=== PATIENT | female | born 1990 | race Hispanic/Latino ===

== ENCOUNTER 2018-01-28 20:31 | Emergency (ER) | payer OTHER ==
[~2018-01-28] VITALS: Ht 152.4 cm; Wt 57.2 kg
--- OUTSIDE RECORDS SUMMARY | 2018-01-28 20:33 | XMS REPORT | Clinical Summary ---
Author Author [facility] Organization [facility] Address Unknown Phone Unavailable Care Team Providers Care Chemistry Tutor Name Role Phone Pcp, No PCP Unavailable Allergies No Known Allergies Medications End Date Status Medication Sig Dispensed Refills Start Date Active VIT#96/FERROUS Take 1 tablet 0 FUM/FA ( VITAMIN by mouth W/IRON-FOLATE) 27 mg daily. iron- 800 mcg Tab Active Problems Problem Noted Date 05/17/2016 05/17/2016 Family History Medical History Relation Name Comments Hypertension Maternal Aunt Relation Name Status Comments Maternal Aunt Social History Date Tobacco Use Types Packs/Day Years Used Never Smoker Smokeless Tobacco: Never Used Alcohol Use Drinks/Week oz/Week Comments No Sex Assigned at Date Recorded Not on file Industry Job Start Date Occupation Not on file Not on file Not on file Travel End Travel History Travel Start No recent travel history available. Last Filed Vital Signs Not on file Plan of Treatment Not on file Results Not on fileafter 01/27/2017 Insurance Payer Benefit Subscriber ID Type Phone Address Plan / Group MEDICAID - MEDICAID MGD MEDICAID xxxxxxxxx Medicaid [facility] Contracted Advance Directives For more information, please contact: [facility] [address] [place] [address] Date Inactivated Comments Code Status Date Activated 05/19/2016 4:09 PM Full Code 05/17/2016 6:46 PM This code status was determined by: Patient 05/17/2016 6:46 PM Full Code 05/17/2016 3:54 PM This code status was determined by: Patient
--- OUTSIDE RECORDS SUMMARY | 2018-01-28 20:33 | XMS REPORT ---
Author Author [facility] Address Unknown Phone Unavailable Care Team Providers Care Director Of Teacher Education Name Role Phone ALEK FLORES Unavailable Unavailable Problems This patient has no known problems. Allergies, Adverse Reactions, Alerts This patient has no known allergies or adverse reactions. Medications This patient has no known medications. Results Test Description Test Time Test Comments Text Results Atomic Results Result Comments RPR 2016-05-18 14:40:00 RPR SCREEN (BEAKER) (test cwhl=559) Nonreactive Nonreactive CBC W/PLT COUNT & AUTO [id number] 07:04:00* Test Item Value Reference Range Comments WHITE BLOOD CELL COUNT (BEAKER) (test bgqe=347) 8.0 K/ L 4.0-10.0 RED BLOOD CELL COUNT (BEAKER) (test gtnf=642) 4.16 M/ L 4.00-5.00 HEMOGLOBIN (BEAKER) (test pwkn=213) 9.9 GM/DL 12.0-15.0 HEMATOCRIT (BEAKER) (test kdcf=280) 29.6 % 36.0-45.0 MEAN CORPUSCULAR VOLUME (BEAKER) (test zmkx=846) 71.2 fL 82.0-99.0 MEAN CORPUSCULAR HEMOGLOBIN (BEAKER) (test apad=255) 23.8 pg 27.0-33.0 MEAN CORPUSCULAR HEMOGLOBIN CONC (BEAKER) (test socs=395) 33.4 GM/DL 32.0-36.0 RED CELL DISTRIBUTION WIDTH (BEAKER) (test dwtz=918) 14.6 % 10.3-14.2 PLATELET COUNT (BEAKER) (test jeuz=778) 176 K/CU MM 150-430 MEAN PLATELET VOLUME (BEAKER) (test qfox=222) 9.9 fL 6.5-10.5 NUCLEATED RED BLOOD CELLS (BEAKER) (test cnwd=139) 0 /100 WBC 0-0 NEUTROPHILS RELATIVE PERCENT (BEAKER) (test simh=314) 75 % LYMPHOCYTES RELATIVE PERCENT (BEAKER) (test otux=355) 18 % MONOCYTES RELATIVE PERCENT (BEAKER) (test gnez=827) 6 % EOSINOPHILS RELATIVE PERCENT (BEAKER) (test lyld=637) 0 % BASOPHILS RELATIVE PERCENT (BEAKER) (test mret=713) 0 % NEUTROPHILS ABSOLUTE COUNT (BEAKER) (test lxii=937) 6.01 K/ L 1.80-8.00 LYMPHOCYTES ABSOLUTE COUNT (BEAKER) (test ftua=129) 1.47 K/ L 1.48-4.50 MONOCYTES ABSOLUTE COUNT (BEAKER) (test ewlj=938) 0.50 K/ L 0.00-1.30 EOSINOPHILS ABSOLUTE COUNT (BEAKER) (test vxcv=265) 0.02 K/ L 0.00-0.50 BASOPHILS ABSOLUTE COUNT (BEAKER) (test vahp=375) 0.01 K/ L 0.00-0.20 (MANUAL DIFFERENTIAL)2016-05-18 07:04:00* Test Item Value Reference Range Comments TOTAL COUNTED (BEAKER) (test zvpy=3243) WBC MORPHOLOGY (BEAKER) (test qoth=522) Normal LARGE PLT(BEAKER) (test udqo=3370) Present MICROCYTES (BEAKER) (test veqt=859) 1+ few URINALYSIS W/ [id number] 18:18:00* Test Item Value Reference Range Comments COLOR (BEAKER) (test iycp=134) Yellow CLARITY (BEAKER) (test zinl=831) Clear SPECIFIC GRAVITY UA (BEAKER) (test qbzg=743) 1.015 1.001-1.035 PH UA (BEAKER) (test efdb=868) 6.5 5.0-8.0 PROTEIN UA (BEAKER) (test dccn=908) 30 mg/dL Negative GLUCOSE UA (BEAKER) (test zjap=701) Negative Negative KETONES UA (BEAKER) (test moaw=181) 40 mg/dL Negative BILIRUBIN UA (BEAKER) (test byag=454) Negative Negative BLOOD UA (BEAKER) (test lnjq=563) Trace Negative NITRITE UA (BEAKER) (test kdve=719) Negative Negative LEUKOCYTE ESTERASE UA (BEAKER) (test ykzx=386) Negative Negative UROBILINOGEN UA (BEAKER) (test zxus=207) 4.0 mg/dL 0.2-1.0 BACTERIA (BEAKER) (test vvvz=204) Few RBC UA-MANUAL (BEAKER) (test ecml=8406) <5 /HPF WBC UA-MANUAL (BEAKER) (test pnap=5874) <5 /HPF SQUAMOUS EPITHELIAL MANUAL (BEAKER) (test vusg=0432) 5-10 /HPF SOURCE(BEAKER) (test dpcn=1412) HEPATITIS B SURFACE [id number] 18:14:00* Test Item Value Reference Range Comments HEPATITIS B SURFACE ANTIGEN (2) (BEAKER) (test gidf=2776) Nonreactive Nonreactive CBC W/PLT COUNT & AUTO [id number] 17:31:00* Test Item Value Reference Range Comments WHITE BLOOD CELL COUNT (BEAKER) (test rvhq=712) 7.3 K/ L 4.0-10.0 RED BLOOD CELL COUNT (BEAKER) (test eizp=284) 4.26 M/ L 4.00-5.00 HEMOGLOBIN (BEAKER) (test sxrk=381) 10.0 GM/DL 12.0-15.0 HEMATOCRIT (BEAKER) (test hvkf=096) 30.8 % 36.0-45.0 MEAN CORPUSCULAR VOLUME (BEAKER) (test gwrg=003) 72.3 fL 82.0-99.0 MEAN CORPUSCULAR HEMOGLOBIN (BEAKER) (test tmpx=256) 23.5 pg 27.0-33.0 MEAN CORPUSCULAR HEMOGLOBIN CONC (BEAKER) (test kfhv=448) 32.5 GM/DL 32.0-36.0 RED CELL DISTRIBUTION WIDTH (BEAKER) (test uidu=418) 15.0 % 10.3-14.2 PLATELET COUNT (BEAKER) (test pkqp=524) 222 K/CU MM 150-430 MEAN PLATELET VOLUME (BEAKER) (test gmyt=772) 10.7 fL 6.5-10.5 NEUTROPHILS RELATIVE PERCENT (BEAKER) (test cfkh=302) 68 % LYMPHOCYTES RELATIVE PERCENT (BEAKER) (test vqsx=518) 25 % MONOCYTES RELATIVE PERCENT (BEAKER) (test qplv=320) 7 % EOSINOPHILS RELATIVE PERCENT (BEAKER) (test pyab=635) 1 % BASOPHILS RELATIVE PERCENT (BEAKER) (test xlkq=519) 0 % NEUTROPHILS ABSOLUTE COUNT (BEAKER) (test lkhz=367) 4.97 K/ L 1.50-10.30 LYMPHOCYTES ABSOLUTE COUNT (BEAKER) (test blju=211) 1.82 K/ L 1.48-4.50 MONOCYTES ABSOLUTE COUNT (BEAKER) (test nuwt=279) 0.48 K/ L 0.00-1.30 EOSINOPHILS ABSOLUTE COUNT (BEAKER) (test pwwx=013) 0.04 K/ L 0.00-0.50 BASOPHILS ABSOLUTE COUNT (BEAKER) (test cxjw=510) 0.01 K/ L 0.00-0.20 (MANUAL DIFFERENTIAL)2016-05-17 17:31:00* Test Item Value Reference Range Comments TOTAL COUNTED (BEAKER) (test ztih=1696) WBC MORPHOLOGY (BEAKER) (test shjh=517) Normal PLT MORPHOLOGY (BEAKER) (test xshw=634) Normal ANISOCYTOSIS (BEAKER) (test docg=761) 1+ few MICROCYTES (BEAKER) (test ynwa=169) 1+ few COMPREHENSIVE METABOLIC [id number] 17:00:00* Test Item Value Reference Range Comments TOTAL PROTEIN (BEAKER) (test ouje=710) 5.8 gm/dL 6.0-8.5 ALBUMIN (BEAKER) (test tjkc=5804) 2.8 g/dL 3.5-5.0 ALKALINE PHOSPHATASE (BEAKER) (test ytai=154) 206 U/L 30-115 BILIRUBIN TOTAL (BEAKER) (test zatv=602) 0.4 mg/dL 0.1-1.2 SODIUM (BEAKER) (test hlab=107) 136 meq/L 135-148 POTASSIUM (BEAKER) (test deye=710) 3.4 meq/L 3.6-5.5 CHLORIDE (BEAKER) (test rurn=044) 108 meq/L 98-106 CO2 (BEAKER) (test bbya=846) 19 meq/L 20-29 BLOOD UREA NITROGEN (BEAKER) (test socw=136) 6 mg/dL 10-26 CREATININE (BEAKER) (test fbru=034) 0.61 mg/dL 0.50-1.20 GLUCOSE RANDOM (BEAKER) (test hgtl=645) 83 mg/dL 70-110 CALCIUM (BEAKER) (test ojba=560) 8.2 mg/dL 8.5-10.5 AST (SGOT) (BEAKER) (test icxo=706) 18 U/L 5-40 ALT (SGPT) (XetawaveAKER) (test bxyh=618) 14 U/L 5-50 EGFR (XetawaveAKER) (test bwft=3225) mL/min/1.73 sq m INSUFFICIENT CLINICAL DATA TO CALCULATE ESTIMATED GFR. URIC [id number] 16:53:00* Test Item Value Reference Range Comments URIC ACID (Fusion Sheep) (test wozb=508) 4.1 mg/dL 2.5-8.0
[2018-01-28 21:20] LABS: BASOPHILS % 0.3 % (0.0-1.0); EOSINOPHILS # (AUTO) 0.2 (0.0-0.4); EOSINOPHILS % 1.8 % (0.0-6.0); HEMATOCRIT 30.7 % (34.2-44.1); HEMOGLOBIN 10.3 g/dL (12.0-16.0); LYMPHOCYTES # (AUTO) 2.8 (1.0-3.2); LYMPHOCYTES % 26.9 % (18.0-39.1); MEAN CORPUSCULAR HEMOGLOBIN 27.2 pg (28-32); MEAN CORPUSCULAR HGB CONC 33.6 g/dL (31-35); MEAN CORPUSCULAR VOLUME 81.2 fL (81-99); MONOCYTES # (AUTO) 0.9 (0.2-0.8); MONOCYTES % 8.3 % (4.4-11.3); NEUTROPHILS # (AUTO) 6.4 (2.1-6.9); NEUTROPHILS % 60.7 % (38.7-80.0); PLATELET COUNT 237 x10e3/uL (140-360); RED BLOOD COUNT 3.78 x10e6/uL (3.6-5.1); RED CELL DISTRIBUTION WIDTH 12.8 % (11.7-14.4)
[2018-01-28 21:34] LABS: ALANINE AMINOTRANSFERASE 12 IU/L (0-55); ALBUMIN/GLOBULIN RATIO 0.8 (0.8-2.0); ALKALINE PHOSPHATASE 73 IU/L (40-150); ANION GAP 13.5 mmol/L (8-16); BLOOD UREA NITROGEN 5 mg/dL (7-26); BUN/CREATININE RATIO 8 (6-25); CALCIUM 9.2 mg/dL (8.4-10.2); CARBON DIOXIDE 21 mmol/L (22-29); CHLORIDE 106 mmol/L (98-107); CREATININE, SERUM 0.64 mg/dL (0.57-1.11); EST GLOMERULAR FILTRATION RATE > 60 ML/MIN (60-); GLUCOSE 91 mg/dL (74-118); MAGNESIUM 1.8 MG/DL (1.3-2.1); POTASSIUM 3.5 mmol/L (3.5-5.1); SODIUM 137 mmol/L (136-145)
[2018-01-28 21:40] LABS: CLARITY,URINE CLEAR (CLEAR); COLOR,URINE STRAW (YELLOW)
[2018-01-28 21:41] LABS: BILIRUBIN,URINE NEGATIVE (NEGATIVE); KETONES,URINE NEGATIVE (NEGATIVE); LEUKOCYTE ESTERASE ,URINE NEGATIVE (NEGATIVE); NITRITE,URINE NEGATIVE (NEGATIVE); PROTEIN,URINE DIPSTICK NEGATIVE (NEGATIVE); URINE UROBILINOGEN 0.2 mg/dL (0.2 - 1)
[2018-01-28 21:55] LABS: EPITHELIAL CELLS,URINE MANY /LPF
[2018-01-28 21:57] LABS: WBC,URINE (MAN) 0-5 /HPF (0-5)
== END 2018-01-28 22:07 | disposition home or self-care (01) ==
LOC: ER 20:31
DX: O26.812 Pregnancy related exhaustion and fatigue, second trimester (principal)
CPT/HCPCS: 36415; 80053; 81001; 83735; 85025; 99283

== ENCOUNTER 2019-06-09 23:19 | Emergency (ER) | payer SELFPAY ==
[~2019-06-09] VITALS: Ht 152.4 cm; Wt 57.2 kg
[2019-06-09] MEDS ORDERED: ACETAMINOPHEN 325 MG TAB PO ONE (23:30)
[2019-06-09] MEDS ORDERED: SODIUM CHLORIDE 0.9% 1000ML 1,000 ML IV ONE (23:30)
[2019-06-09] MEDS ORDERED: CEFEPIME 2 GM/NS 0.9% 100 ML 100 ML IV ONE (23:30)
[2019-06-09 23:44] LABS: BASOPHILS % 0.2 % (0.0-1.0); EOSINOPHILS # (AUTO) 0.1 (0.0-0.4); EOSINOPHILS % 1.2 % (0.0-6.0); HEMATOCRIT 36.3 % (34.2-44.1); HEMOGLOBIN 11.3 g/dL (12.0-16.0); LYMPHOCYTES % 10.8 % (18.0-39.1); MEAN CORPUSCULAR HEMOGLOBIN 24.4 pg (28-32); MEAN CORPUSCULAR HGB CONC 31.1 g/dL (31-35); MEAN CORPUSCULAR VOLUME 78.2 fL (81-99); MONOCYTES # (AUTO) 0.3 (0.2-0.8); MONOCYTES % 2.9 % (4.4-11.3); NEUTROPHILS # (AUTO) 7.5 (2.1-6.9); NEUTROPHILS % 84.3 % (38.7-80.0); PLATELET COUNT 244 x10e3/uL (140-360); RED BLOOD COUNT 4.64 x10e6/uL (3.6-5.1); RED CELL DISTRIBUTION WIDTH 13.7 % (11.7-14.4)
[2019-06-09 23:53] LABS: INR 0.93
[2019-06-09 23:54] LABS: PARTIAL THROMBOPLASTIN TIME 34.2 seconds (23.8-35.5)
[2019-06-10 00:02] LABS: BILIRUBIN,URINE NEGATIVE (NEGATIVE); CLARITY,URINE CLOUDY (CLEAR); COLOR,URINE YELLOW (YELLOW); KETONES,URINE NEGATIVE (NEGATIVE); LEUKOCYTE ESTERASE ,URINE 1+ (NEGATIVE); NITRITE,URINE NEGATIVE (NEGATIVE); PROTEIN,URINE DIPSTICK 2+ (NEGATIVE); URINE UROBILINOGEN 1 mg/dL (0.2 - 1)
[2019-06-10 00:03] LABS: ALANINE AMINOTRANSFERASE 64 IU/L (0-55); ALBUMIN 3.5 g/dL (3.5-5.0); ALBUMIN/GLOBULIN RATIO 0.9 (0.8-2.0); ALKALINE PHOSPHATASE 148 IU/L (40-150); ANION GAP 11.2 mmol/L (8-16); BLOOD UREA NITROGEN 8 mg/dL (7-26); BUN/CREATININE RATIO 11 (6-25); CALCIUM 9.4 mg/dL (8.4-10.2); CARBON DIOXIDE 27 mmol/L (22-29); CHLORIDE 99 mmol/L (98-107); EST GLOMERULAR FILTRATION RATE > 60 ML/MIN (60-); GLUCOSE 115 mg/dL (74-118); POTASSIUM 3.2 mmol/L (3.5-5.1); SODIUM 134 mmol/L (136-145)
[2019-06-10 00:13] LABS: BACTERIA,URINE MANY /HPF; EPITHELIAL CELLS,URINE FEW /LPF; WBC,URINE (MAN) >50 /HPF (0-5)
[2019-06-10] MEDS ORDERED: IBUPROFEN 600 MG TAB PO STA (00:42)
[2019-06-10] MEDS ORDERED: SODIUM CHLORIDE 0.9% 1000ML 1,000 ML IV ONE (00:45)
[2019-06-10] MEDS ORDERED: IBUPROFEN 600 MG TAB ONE (00:56)
== END 2019-06-10 03:53 | disposition home or self-care (01) ==
LOC: ER 23:19
DX: R50.9 Fever, unspecified (principal); R30.0 Dysuria; M54.5 Low back pain; N30.91 Cystitis, unspecified with hematuria
CPT/HCPCS: 36415; 80053; 81001; 83605; 84702; 85025; 85610; 85730; 87040; 87071; 87086; 87186; 87205; 99284; J7030 ×2

== ENCOUNTER 2019-06-22 00:48 | Emergency (ER) | payer SELFPAY ==
[~2019-06-22] VITALS: Ht 152.4 cm; Wt 57.2 kg
[2019-06-22 01:01] VITALS: BP 147/88
[2019-06-22 01:17] LABS: BASOPHILS # (AUTO) 0.1 (0.0-0.1); BASOPHILS % 0.5 % (0.0-1.0); EOSINOPHILS # (AUTO) 0.4 (0.0-0.4); EOSINOPHILS % 4.2 % (0.0-6.0); HEMATOCRIT 34.5 % (34.2-44.1); HEMOGLOBIN 10.6 g/dL (12.0-16.0); LYMPHOCYTES # (AUTO) 2.8 (1.0-3.2); LYMPHOCYTES % 30.6 % (18.0-39.1); MEAN CORPUSCULAR HGB CONC 30.7 g/dL (31-35); MEAN CORPUSCULAR VOLUME 78.1 fL (81-99); MONOCYTES # (AUTO) 0.6 (0.2-0.8); MONOCYTES % 6.7 % (4.4-11.3); NEUTROPHILS # (AUTO) 5.4 (2.1-6.9); NEUTROPHILS % 57.6 % (38.7-80.0); PLATELET COUNT 457 x10e3/uL (140-360); RED BLOOD COUNT 4.42 x10e6/uL (3.6-5.1)
--- NOTE | 2019-06-22 01:31 | Diagnostic Imaging Report ---
EXAMINATION: CHEST 2 VIEWS INDICATION: ^chest pain ^[id number] ^0100 ^Y COMPARISON: None FINDINGS: PA and lateral views TUBES and LINES: None. LUNGS: Lungs are well inflated. Lungs are clear. There is no evidence of pneumonia or pulmonary edema. PLEURA: No pleural effusion or pneumothorax. HEART AND MEDIASTINUM: The cardiomediastinal silhouette is unremarkable. BONES AND SOFT TISSUES: No acute osseous lesion. Soft tissues are unremarkable. UPPER ABDOMEN: No free air under the diaphragm. IMPRESSION: No acute thoracic radiographic abnormality. Signed by: Franklyn Crowder MD on 06/22/2019 1:28 AM
[2019-06-22 01:33] LABS: ANION GAP 11.5 mmol/L (8-16); BLOOD UREA NITROGEN 9 mg/dL (7-26); BUN/CREATININE RATIO 12 (6-25); CARBON DIOXIDE 27 mmol/L (22-29); CHLORIDE 104 mmol/L (98-107); CREATINE KINASE 91 IU/L (29-168); CREATININE, SERUM 0.75 mg/dL (0.57-1.11); EST GLOMERULAR FILTRATION RATE > 60 ML/MIN (60-); GLUCOSE 107 mg/dL (74-118); POTASSIUM 3.5 mmol/L (3.5-5.1); SODIUM 139 mmol/L (136-145)
== END 2019-06-22 01:51 | disposition home or self-care (01) ==
LOC: ER 00:48
DX: R07.89 Other chest pain (principal); F41.9 Anxiety disorder, unspecified
CPT/HCPCS: 36415; 71046; 80048; 82550; 82553; 84484; 85025; 93005; 99283

== ENCOUNTER 2019-07-02 12:52 | Emergency (ER) | payer OTHER ==
[~2019-07-02] VITALS: Ht 152.4 cm; Wt 57.2 kg
--- OUTSIDE RECORDS SUMMARY | 2019-07-02 12:55 | XMS REPORT | Continuity of Care Document ---
Author Author [facility] Address Unknown Phone Unavailable Care Team Providers Care Coroner Technician Name Role Phone [employer] [place] Unavailable Un available Problems Problem Status Onset Date Classification Date Reported Comments Source Urinary tract infection, site not specified 09/10/2018 09/12/2018 [facility] URINARY SYMPTOMS Active 09/10/2018 [facility] 640.03=, THREATENED, ANTEPARTUM Active 10/05/2014 [facility] 640.03 , THREATENED, ANTEPARTUM Active 10/05/2014 [facility] Discharge Diagnosis: Female pelvic pain 09/15/2014 09/18/2014 [facility] PELVIC PAIN/ OTHER Active 09/15/2014 [facility] Medications Medication Details Route Status Patient Instructions Ordering Provider Order Date Source ibuprofen 600 mg oral tablet 6 00 mg = 1 tab, PO, Q6H, PRN Pain or Fever, Take with food, X 3 day, # 12 tab, 0 Refill(s) Active 09/10/2018 [facility] Cephalexin 500 MG Oral Capsule [Keflex] 500 mg = 1 cap, PO, BID, X 7 day, # 14 cap, 0 Refill(s) Active 09/10/2018 [facility] Rocephin 1 gm, Route: IM, Drug form: PDR/INJ, ONCE, Dosing Weight 57.273, kg, Priority: STAT, Start date: 09/10/18 8:54:00 CDT, Stop date: 09/10/18 8:54:00 CDT, ABX Indication: Genital Tract Infection Inactive 09/10/2018 [facility] Ibuprofen Notes: (Same as: Adv il) Give with food. Inactive 09/10/2018 [facility] Allergies, Adverse Reactions, Alerts Substance Category Reaction Severity Reaction type Status Date Reported Comments Source No Known Medication Allergies Assertion Drug aller gy [facility] Immunizations No Data Provided for This Section Results Order Name Results Value Reference Range Date Interpretation Comments Source URINE CHEM U Preg Negat kenzie (09/10/18 7:50 AM) Negative 09/10/2018 [facility] Culture: Urine 10,000 - 50,00 0 CFU/mL Escherichia coli Sensitivity Pending 09/10/2018 [facility] URINE AND STOOL UA Color Ltyellow 09/10/2018 [facility] URINE AND STOOL UA Urobilinogen <=1.0 mg/dL 0.1 - 1.0 09/10/2018 [facility] URINE AND STOOL UA Mucus Few /LPF None Seen /LPF 09/10/2018 [facility] URINE AND STOOL UA RBC 49 0 - 2 09/10/2018 [facility] URINE AND STOOL UA Sq Epi Occasional /LPF Few /LPF 09/10/2018 [facility] URINE AND STOOL UA Bacteria Occasional /HPF None Seen /HPF 09/10/[address] [facility] [address] URINE AND STOOL UA WBC >182 0 - 5 09/10/2018 [facility] URINE AND STOOL UA Nitrite Negative (09/10/18 7:44 AM) Negative 09/10/2018 [facility] URINE AND STOOL UA Glucose Negative mg/dL Negative mg/dL 09/10/2018 [facility] URINE AND STOOL UA Bili Negative *NA* (09/10/18 7:44 AM) Negative 09/10/2018 [facility] URINE AND STOOL UA Leuk Est Large *ABN* (09/10/18 7:44 AM) Negative 09/10/2018 [facility] URINE AND STOOL UA Ketones Negative mg/dL Negative mg/dL 09/10/2018 [facility] URINE AND STOOL UA Blood Moderate *ABN* (09/10/18 7:44 AM) Negative 09/10/2018 [facility] URINE AND STOOL UA Spec Grav 1.009 <=1.030 09/10/2018 [facility] URINE AND STOOL UA Turbidity Slight *ABN* (09/10/18 7:44 AM) Clear 09/10/2018 [facility] URINE AND STOOL UA Protein 100 mg/dL Negative mg/dL 09/10/2018 [facility] URINE AND STOOL UA pH 6.0 5.0 - 8.0 09/10/2018 [facility] BLOOD BANK RESULTS ABO/Rh B POS 09/15/2014 [facility] CHEM PANEL Lipase Lvl 183 73 - 393 09/15/2014 [facility] ELECTROLYTES AGAP 12.5 10.0 - 20.0 09/15/2014 [facility] ELECTROLYTES B/C Ratio 13 6 - 25 09/15/2014 [facility] ELECTROLYTES Globulin 3.8 2.0 - 4.0 09/15/2014 [facility] ELECTROLYTES A/G Ratio 1.0 0.7 - 1.6 09/15/2014 [facility] ELECTROLYTES eGFR 90 09/15/2014 Result Comment: The eGFR is calculated using the CKD-EPI formula. In most young, healthy individuals the eGFR will be >90 mL/min/1.73m2. The eGFR declines with age. An eGFR of 60-89 may be normal in some populations, particularly the elderly, for whom the CKD-EPI formula has not been extensively validated. Use of the eGFR is not recommended in the following populations:

Individuals with unstable creatinine concentrations, including patients and those with serious co-morbid conditions.

Patients with extremes in muscle mass or diet.

The data above are obtained from the National Kidney Disease Education Program (NKDEP) which additionally recommends that when the eGFR is used in patients with extremes of body mass index for purposes of drug dosing, the eGFR should be multiplied by the estimated BMI. [facility] ELECTROLYTES BUN 12 7 - 22 09/15/2014 [facility] ELECTROLYTES Creatinine Lvl 0.9 0.5 - 1.4 09/15/2014 [facility] ELECTROLYTES Glucose Lvl 97 70 - 99 09/15/2014 [facility] ELECTROLYTES CO2 25 24 - 32 09/15/2014 [facility] ELECTROLYTES Albumin Lvl 3.8 3.5 - 5.0 09/15/2014 [facility] ELECTROLYTES Total Protein 7.6 6.4 - 8.4 09/15/2014 [facility] ELECTROLYTES ALT 25 0 - 65 09/15/2014 [facility] ELECTROLYTES AST 10 0 - 37 09/15/2014 [facility] ELECTROLYTES Bili Total 0.4 0.2 - 1.3 09/15/2014 [facility] ELECTROLYTES Alk Phos 58 39 - 136 09/15/2014 [facility] ELECTROLYTES Potassium Lvl 3.5 3.5 - 5.1 09/15/2014 [facility] ELECTROLYTES Chloride Lvl 103 95 - 109 09/15/2014 [facility] ELECTROLYTES Calcium Lvl 8.9 8.5 - 10.5 09/15/2014 [facility] ELECTROLYTES Sodium Lvl 137 135 - 145 09/15/2014 [facility] ENDOCRINOLOGY hCG Tot 501 09/15/2014 [facility] HEMATOLOGY Lymphocytes 25.9 20.0 - 40.0 09/15/2014 [facility] HEMATOLOGY Segs 65.3 45.0 - 75.0 09/15/2014 [facility] HEMATOLOGY Monocytes # 0.9 0.0 - 0.8 09/15/2014 [facility] HEMATOLOGY Lymphocytes # 3.3 1.0 - 5.5 09/15/2014 [facility] HEMATOLOGY Segs-Bands # 8.4 1.5 - 8.1 09/15/2014 [facility] HEMATOLOGY Basophils 0.2 0.0 - 1.0 09/15/2014 [facility] Monocytes 6.8 2.0 - 12.0 09/15/2014 [facility] HEMATOLOGY Eosinophils 1.8 0.0 - 4.0 09/15/2014 [facility] HEMATOLOGY Eosinophils # 0.2 0.0 - 0.5 09/15/2014 [facility] MCH 28.2 27.0 - 31.0 09/15/2014 [facility] RDW 13.5 11.5 - 14.5 09/15/2014 [facility] MCHC 34.2 32.0 - 36.0 09/15/2014 [facility] MPV 8.1 7.4 - 10.4 09/15/2014 [facility] Platelet 265 133 - 450 09/15/2014 [facility] Hgb 13.6 12.0 - 16.0 09/15/2014 [facility] RBC 4.82 4.20 - 5.40 09/15/2014 [facility] WBC 12.9 3.7 - 10.4 09/15/2014 [facility] MCV 82.4 80.0 - 98.0 09/15/2014 [facility] Hct 39.7 36.0 - 48.0 09/15/2014 [facility] URINE AND STOOL UA Urobilinogen <=1.0 mg/dL 0.1 - 1.0 09/15/2014 [facility] URINE AND STOOL UA Turbidity Slight *ABN* (09/15/14 4:51 PM) Clear 09/15/2014 [facility] URINE AND STOOL UA Bili Negative *NA* (09/15/14 4:51 PM) Negative 09/15/2014 [facility] URINE AND STOOL UA Ketones Negative mg/dL Negative mg/dL 09/15/2014 [facility] URINE AND STOOL UA Glucose Negative mg/dL Negative mg/dL 09/15/2014 [facility] URINE AND STOOL UA Sq Epi Moderate /LPF Few /LPF 09/15/2014 [facility] URINE AND STOOL UA Leuk Est Negative (09/15/14 4:51 PM) Negative 09/15/2014 [facility] URINE AND STOOL UA Protein Negative mg/dL Negative mg/dL 09/15/[address] [facility] [address] URINE AND STOOL UA pH 5.0 5.0 - 8.0 09/15/2014 [facility] URINE AND STOOL UA Spec Grav 1.030 <=1.030 09/15/2014 [facility] URINE AND STOOL UA Nitrite Negative (09/15/14 4:51 PM) Negative 09/15/2014 [facility] URINE AND STOOL UA Blood Moderate *ABN* (09/15/14 4:51 PM) Negative 09/15/2014 [facility] URINE AND STOOL UA RBC 8 0 - 2 09/15/2014 [facility] URINE AND STOOL UA WBC 3 0 - 5 09/15/2014 [facility] URINE AND STOOL UA Bacteria Occasional /HPF None Seen /HPF 09/15/[address] [facility] [address] URINE AND STOOL UA Mucus Many /LPF None Seen /LPF 09/15/2014 [facility] URINE AND STOOL UA Color Yellow *NA* (09/15/14 4:51 PM) Yellow 09/15/2014 [facility] URINE CHEM U Preg Posit kenzie *ABN* (09/15/14 4:51 PM) Negative 09/15/2014 [facility] Pathology Reports No Data Provided for This Section Diagnostic Reports Report Value Date Source Preg < 14wks Single gest w Transvag US HISTORY: Threatened . Transabdominal and transvaginal pelvic ultrasound exam Transabdominal series demonstrates uterus of 8 x 5 x 6 cm. There is an intrauterine gestational sac with a single live pole. Amniotic fluid volume appears adequate. [place]-rump length 0.95 cm. heart rate 153 beats per minute, normal. Maternal ovaries appear normal. Transvaginal series again confirms single live intrauterine gestation. [place]- rump length 1.4 cm correlating with a 7 week 5 day gestation. No subchorionic hemorrhage. heart rate 146 beats per minute. Maternal ovaries normal. IMPRESSION: 7-8 week single live intrauterine gestation. Normal heart rate. No subchorionic hemorrhage. Estimated due date 05/20/2015. SL:13 10/07/2014 [facility] Preg < 14wks Single gest w Transvag US OBSTETRIC FIRST TRIMESTER ULTRASOUND INDICATION: Acute abdominal pain COMPARISON: None DISCUSSION: Current beta-hCG level is approximately 500. TRANSABDOMINAL: The uterus measures 6.8 x 4.3 x 6.7 cm. The cervix is closed. No fibroids are identified. TRANSVAGINAL: A gestational sac is demonstrated within the endometrial cavity, with mean sac diameter of 4 mm . There is no yolk sac or pole. No subchorionic hemorrhage is identified. The right ovary measures 3.6 x 2.3 x 2.4 cm. The test lead application testing demarcated an 8 mm complex cyst of the right ovary. Color Doppler evaluation does not demonstrate peripheral hypervascularity. The left ovary is normal in appearance, measuring 2.9 x 1.3 x 1.7 cm. Trace free fluid is noted in the cul-de-sac. IMPRESSION: 1. Positive for single intrauterine preg maria d, with estimated gestational age of 5 weeks 0 days. 2. The 8 mm complex cyst of the right ov ruslan likely represents a corpus luteum. Ectopic of the ovary and a heterotopic would be exceedingly rare. If there is clinical suspicion of a possible right ectopic . Short-term follow-up beta-hCG level and pelvic ultrasound are recommended. 3. Nonspecific trace pelvic free fluid. SL: 16 09/15/2014 [facility] Consultation Notes No Data Provided for This Section Discharge Summaries No Data Provided for This Section History and Physicals No Data Provided for This Section Vital Signs Vital Sign Value Date Comments Source Systolic (mm Hg) 117 09/10/2018 [facility] Diastolic (mm Hg) 68 09/10/2018 [facility] Respitory Rate 16 09/10/2018 [facility] Temperature Oral (F) 98.4 F 09/10/2018 [facility] Heart Rate 77 09/10/2018 [facility] Weight 57.273 09/10/2018 [facility] BMI Calculated 24.66 09/10/2018 [facility] Temperature Oral (F) 98.8 F 09/10/2018 [facility] Height 152.4 cm 09/10/2018 [facility] Systolic (mm Hg) 134 09/10/2018 [facility] Diastolic (mm Hg) 77 09/10/2018 [facility] Heart Rate 86 09/10/2018 [facility] Respitory Rate 16 09/10/2018 [facility] Respitory Rate 18 09/16/2014 [facility] Systolic (mm Hg) 108 09/16/2014 [facility] Diastolic (mm Hg) 72 09/16/2014 [facility] Heart Rate 74 09/16/2014 [facility] Temperature Oral (F) 98.6 F 09/16/2014 [facility] Temperature Oral (F) 98.3 F 09/15/2014 [facility] Respitory Rate 18 09/15/2014 [facility] Weight 58.182 09/15/2014 [facility] Systolic (mm Hg) 109 09/15/2014 [facility] Diastolic (mm Hg) 69 09/15/2014 [facility] Heart Rate 78 09/15/2014 [facility] Encounters Location Location Details Encounter Type Encounter Number Reason For Visit Attending Provider ADM Date DC Date Status Source [facility] [id number] Nick Stone 09/15/2014 09/16/2014 [facility] Outpatient [id number] Cornelio Mcqueen 10/07/2014 10/08/2014 [facility] Emergency [id number] Lexa Vieira 09/10/2018 09/10/2018 [facility] Procedures Procedure Code Date Perfomer Comments Source Breast augmentation [id number] [facility] section [id number] [facility] Assessment and Plan No Data Provided for This Section Plan of Care No Data Provided for This Section Social History Social History Date Source Social History TypeResponse Substance Abuse Use: None. Alcohol Current Smoking Status Never smoker; Exposure to Tobacco Smoke None; Cigarette Smoking Last 365 Days No; Reg Smoking Cessation Counseling No entered on: 09/10/18 09/10/2018 [facility] Family History No Data Provided for This Section Advance Directives No Data Provided for This Section Functional Status No Data Provided for This Section
--- OUTSIDE RECORDS SUMMARY | 2019-07-02 12:56 | XMS REPORT | Summary of Care ---
Author Author [facility] ospital Organization [facility] Address Unknown Phone Unavailable Encounter HQ Pierce(FIN) [id number] Date(s): 09/10/18 - 09/10/18 [facility] [address] [place] [address]- Encounter Diagnosis Acute UTI (Discharge Diagnosis) - 09/10/18 Discharge Disposition: Home or Self Care Attending Physician: Lexa Vieira MD Vital Signs Most recent to 1 2 oldest [Reference Range]: Height 152.4 cm (09/10/18 7:17 AM) Temperature Oral 98.4 DegF 98.8 DegF [96.4-99.1 DegF] (09/10/18 9:18 AM) (09/10/18 7:17 AM) Blood Pressure 117/68 mmHg 134/77 mmHg [90-140/60-90 mmHg] (09/10/18 9:18 AM) (09/10/18 7:17 AM) Respiratory Rate 16 BRMIN 16 BRMIN [14-20 BRMIN] (09/10/18 9:18 AM) (09/10/18 7:17 AM) Peripheral Pulse 77 bpm 86 bpm Rate [60-100 bpm] (09/10/18 9:18 AM) (09/10/18 7:17 AM) Weight 57.273 kg (09/10/18 7:17 AM) Body Mass Index 24.66 m2 (09/10/18 7:17 AM) Problem List No data available for this section Allergies, Adverse Reactions, Alerts No Known Medication Allergies Medications ibuprofen 600 mg, 3 tab, Route: PO, Drug form: TAB, ONCE, Dosing Weight 57.273, kg, Priori ty: STAT, Start date: 09/10/18 8:11:00 CDT, Stop date: 09/10/18 8:11:00 CDT, 0 Notes: (Same as: Advil) Give with food. Start Date: 09/10/18 Stop Date: 09/10/18 Status: Completed ibuprofen 600 mg oral tablet 600 mg = 1 tab, PO, Q6H, PRN Pain or Fever, Take with food, X 3 day, # 12 tab, 0 Refill(s) Start Date: 09/10/18 Stop Date: 09/13/18 Status: Ordered Keflex 500 mg oral capsule 500 mg = 1 cap, PO, BID, X 7 day, # 14 cap, 0 Refill(s) Start Date: 09/10/18 Stop Date: 09/17/18 Status: Ordered Rocephin 1 gm, Route: IM, Drug form: PDR/INJ, ONCE, Dosing Weight 57.273, kg, Priority: S TAT, Start date: 09/10/18 8:54:00 CDT, Stop date: 09/10/18 8:54:00 CDT, ABX Suzanne cation: Genital Tract Infection Start Date: 09/10/18 Stop Date: 09/10/18 Status: Completed Results Most recent to 1 oldest [Reference Range]: UA Bacteria [None Occasional /HPF Seen /HPF] *NA* (09/10/18 7:44 AM) UA Bili [Negative] Negative *NA* (09/10/18 7:44 AM) UA Blood [Negative] Moderate *ABN* (09/10/18 7:44 AM) UA Color Ltyellow *NA* (09/10/18 7:44 AM) UA Glucose [Negative Negative mg/dL mg/dL] *NA* (09/10/18 7:44 AM) UA Ketones [Negative Negative mg/dL mg/dL] *NA* (09/10/18 7:44 AM) UA Leuk Est Large [Negative] *ABN* (09/10/18 7:44 AM) UA Mucus [None Seen Few /LPF /LPF] *NA* (09/10/18 7:44 AM) UA Nitrite Negative [Negative] (09/10/18 7:44 AM) UA pH [5.0-8.0] 6.0 (09/10/18 7:44 AM) U Preg [Negative] Negative (09/10/18 7:50 AM) UA Protein [Negative 100 mg/dL mg/dL] *ABN* (09/10/18 7:44 AM) UA RBC [0-2 /HPF] 49 /HPF *HI* (09/10/18 7:44 AM) UA Spec Grav 1.009 [<=1.030] (09/10/18 7:44 AM) UA Sq Epi [Few /LPF] Occasional /LPF *NA* (09/10/18 7:44 AM) UA Turbidity [Clear] Slight *ABN* (09/10/18 7:44 AM) UA Urobilinogen <=1.0 mg/dL [0.1-1.0 mg/dL] *NA* (09/10/18 7:44 AM) UA WBC [0-5 /HPF] >182 /HPF *HI* (09/10/18 7:44 AM) Microbiology Reports TEST: Culture: Urine STATUS: Order in Progress BODY SITE: SOURCE: Urine, Clean Catch COLLECTED DATE/TIME: 09/10/18 7:50 AM PRELIMINARY REPORT 10,000 - 50,000 CFU/mL Escherichia coli Sensitivity Pending Immunizations No data available for this section Procedures Procedure Date Related Diagnosis Body Site Status Breast augmentation Completed section Completed Social History Social History Type Response Substance Abuse Use: None. Alcohol Current Smoking Status Never smoker; Exposure to T obacco Smoke None; Cigarette Smoking Last 365 Days No; Reg Smoking Cessation Counseli ng No entered on: 09/10/18 Assessment and Plan No data available for this section
--- OUTSIDE RECORDS SUMMARY | 2019-07-02 12:56 | XMS REPORT | Summary of Care ---
Author Author [facility] Organization [facility] Address Unknown Phone Unavailable Encounter ALONDRA Pelayo(JUSTYNA) [id number] Date(s): 09/15/14 - 09/15/14 [facility] [address] [place] [address]- [phone] Discharge Diagnosis: Female pelvic pain Discharge Disposition: Home Attending Physician: Nick Stone MD Vital Signs Most recent to 1 2 oldest [Reference Range]: Temperature Oral 98.6 DegF 98.3 DegF [96.4-99.1 DegF] (09/15/14 7:37 PM) (09/15/14 4:23 PM) Most recent to 1 2 oldest [Reference Range]: Blood Pressure 108/72 mmHg 109/69 mmHg [90-140/60-90 mmHg] (09/15/14 7:37 PM) (09/15/14 4:23 PM) Most recent to 1 2 oldest [Reference Range]: Respiratory Rate 18 BRMIN 18 BRMIN [14-20 BRMIN] (09/15/14 7:37 PM) (09/15/14 4:23 PM) Most recent to 1 2 oldest [Reference Range]: Peripheral Pulse 74 bpm 78 bpm Rate [60-100 bpm] (09/15/14 7:37 PM) (09/15/14 4:23 PM) Most recent to 1 2 oldest [Reference Range]: Weight 58.182 kg (09/15/14 4:23 PM) Problem List No data available for this section Allergies, Adverse Reactions, Alerts Substance Reaction Severity Status NKDA Active Medications No data available for this section Results BLOOD BANK RESULTS Most recent to 1 oldest [Reference Range]: ABO/Rh B POS *Unknown* (09/15/14 4:51 PM) ELECTROLYTES Most recent to 1 oldest [Reference Range]: Sodium Lvl [135-145 137 mEq/L mEq/L] (09/15/14 4:51 PM) Potassium Lvl 3.5 mEq/L [3.5-5.1 mEq/L] (09/15/14 4:51 PM) Chloride Lvl [95-109 103 mEq/L mEq/L] (09/15/14 4:51 PM) CO2 [24-32 mEq/L] 25 mEq/L (09/15/14 4:51 PM) AGAP [10.0-20.0 12.5 mEq/L mEq/L] (09/15/14 4:51 PM) CHEM PANEL Most recent to 1 oldest [Reference Range]: Creatinine Lvl 0.9 mg/dL [0.5-1.4 mg/dL] (09/15/14 4:51 PM) eGFR 90 mL/min/1.73m2 1 *NA* (09/15/14 4:51 PM) BUN [7-22 mg/dL] 12 mg/dL (09/15/14 4:51 PM) B/C Ratio [6-25] 13 (09/15/14 4:51 PM) Glucose Lvl [70-99 97 mg/dL mg/dL] (09/15/14 4:51 PM) Total Protein 7.6 g/dL [6.4-8.4 g/dL] (09/15/14 4:51 PM) Albumin Lvl [3.5-5.0 3.8 g/dL g/dL] (09/15/14 4:51 PM) Globulin [2.0-4.0 3.8 g/dL g/dL] (09/15/14 4:51 PM) A/G Ratio [0.7-1.6] 1.0 (09/15/14 4:51 PM) Calcium Lvl 8.9 mg/dL [8.5-10.5 mg/dL] (09/15/14 4:51 PM) ALT [0-65 unit/L] 25 unit/L (09/15/14 4:51 PM) AST [0-37 unit/L] 10 unit/L (09/15/14 4:51 PM) Alk Phos [39-136 58 unit/L unit/L] (09/15/14 4:51 PM) Bili Total [0.2-1.3 0.4 mg/dL mg/dL] (09/15/14 4:51 PM) Lipase Lvl [73-393 183 unit/L unit/L] (09/15/14 4:51 PM) 1Result Comment: The eGFR is calculated using the [...] from the National Kidney Disease Education Program ( NKDEP) which additionally recommends that when the eGFR is used in patients with extremes of body mass index for purposes of drug dosing, the eGFR should be mul tiplied by the estimated BMI. ENDOCRINOLOGY Most recent to 1 oldest [Reference Range]: hCG Tot 501 mIU/mL *NA* (09/15/14 4:51 PM) URINE CHEM Most recent to 1 oldest [Reference Range]: U Preg [Negative] Positive *ABN* (09/15/14 4:51 PM) URINE AND STOOL Most recent to 1 oldest [Reference Range]: UA Turbidity [Clear] Slight *ABN* (09/15/14 4:51 PM) UA Color [Yellow] Yellow *NA* (09/15/14 4:51 PM) UA pH [5.0-8.0] 5.0 (09/15/14 4:51 PM) UA Spec Grav 1.030 [<=1.030] (09/15/14 4:51 PM) UA Glucose [Negative Negative mg/dL mg/dL] *NA* (09/15/14 4:51 PM) UA Blood [Negative] Moderate *ABN* (09/15/14 4:51 PM) UA Ketones [Negative Negative mg/dL mg/dL] *NA* (09/15/14 4:51 PM) UA Protein [Negative Negative mg/dL mg/dL] (09/15/14 4:51 PM) UA Urobilinogen <=1.0 mg/dL [0.1-1.0 mg/dL] *NA* (09/15/14 4:51 PM) UA Bili [Negative] Negative *NA* (09/15/14 4:51 PM) UA Leuk Est Negative [Negative] (09/15/14 4:51 PM) UA Nitrite Negative [Negative] (09/15/14 4:51 PM) UA WBC [0-5 /HPF] 3 /HPF (09/15/14 4:51 PM) UA RBC [0-2 /HPF] 8 /HPF *HI* (09/15/14 4:51 PM) UA Bacteria [None Occasional /HPF Seen /HPF] *NA* (09/15/14 4:51 PM) UA Sq Epi [Few /LPF] Moderate /LPF *ABN* (09/15/14 4:51 PM) UA Mucus [None Seen Many /LPF /LPF] *ABN* (09/15/14 4:51 PM) HEMATOLOGY Most recent to 1 oldest [Reference Range]: WBC [3.7-10.4 K/CMM] 12.9 K/CMM *HI* (09/15/14 4:51 PM) RBC [4.20-5.40 4.82 M/CMM M/CMM] (09/15/14 4:51 PM) Hgb [12.0-16.0 g/dL] 13.6 g/dL (09/15/14 4:51 PM) Hct [36.0-48.0 %] 39.7 % (09/15/14 4:51 PM) MCV [80.0-98.0 fL] 82.4 fL (09/15/14 4:51 PM) MCH [27.0-31.0 pg] 28.2 pg (09/15/14 4:51 PM) MCHC [32.0-36.0 34.2 g/dL g/dL] (09/15/14 4:51 PM) RDW [11.5-14.5 %] 13.5 % (09/15/14 4:51 PM) Platelet [133-450 265 K/CMM K/CMM] (09/15/14 4:51 PM) MPV [7.4-10.4 fL] 8.1 fL (09/15/14 4:51 PM) Segs [45.0-75.0 %] 65.3 % (09/15/14 4:51 PM) Lymphocytes 25.9 % [20.0-40.0 %] (09/15/14 4:51 PM) Monocytes [2.0-12.0 6.8 % %] (09/15/14 4:51 PM) Eosinophils [0.0-4.0 1.8 % %] (09/15/14 4:51 PM) Basophils [0.0-1.0 0.2 % %] (09/15/14 4:51 PM) Segs-Bands # 8.4 K/CMM [1.5-8.1 K/CMM] *HI* (09/15/14 4:51 PM) Lymphocytes # 3.3 K/CMM [1.0-5.5 K/CMM] (09/15/14 4:51 PM) Monocytes # [0.0-0.8 0.9 K/CMM K/CMM] *HI* (09/15/14 4:51 PM) Eosinophils # 0.2 K/CMM [0.0-0.5 K/CMM] (09/15/14 4:51 PM) Immunizations No data available for this section Procedures No data available for this section Social History Social History Type Response Smoking Status Never smoker; Exposure to T obacco Smoke None; Cigarette Smoking Last 365 Days No; Reg Smoking Cessation Counseli ng No Assessment and Plan No data available for this section
--- OUTSIDE RECORDS SUMMARY | 2019-07-02 12:56 | XMS REPORT | Summary of Care ---
Author Author [facility] Organization [facility] Address Unknown Phone Unavailable Encounter HQ Encntr_alias(FIN) [id number] Date(s): 10/07/14 - 10/07/14 [facility] [address] [place] [address]- [phone] Discharge Disposition: Home Attending Physician: Cornelio Mcqueen MD Referring Physician: Cornelio Mcqueen MD Vital Signs No data available for this section Problem List No data available for this section Allergies, Adverse Reactions, Alerts Substance Reaction Severity Status NKDA Active Medications No data available for this section Results No data available for this section Immunizations No data available for this section Procedures No data available for this section Social History Social History Type Response Smoking Status Never smoker; Exposure to T obacco Smoke None; Cigarette Smoking Last 365 Days No; Reg Smoking Cessation Counseli ng No Assessment and Plan No data available for this section
[2019-07-02] MEDS ORDERED: SODIUM CHLORIDE 0.9% 1000ML 1,000 ML IV STA (13:21)
[2019-07-02] MEDS ORDERED: ASPIRIN 81 MG CHEW TAB PO ONE (13:30)
[2019-07-02 14:18] LABS: CLARITY,URINE CLEAR (CLEAR); COLOR,URINE YELLOW (YELLOW)
[2019-07-02 14:19] LABS: BILIRUBIN,URINE NEGATIVE (NEGATIVE); LEUKOCYTE ESTERASE ,URINE NEGATIVE (NEGATIVE); NITRITE,URINE NEGATIVE (NEGATIVE); PREGNANCY TEST, URINE NEGATIVE (NEGATIVE); PROTEIN,URINE DIPSTICK NEGATIVE (NEGATIVE); URINE UROBILINOGEN 0.2 mg/dL (0.2 - 1)
[2019-07-02 14:20] LABS: AMPHETAMINES SCREEN,URINE NEGATIVE (NEGATIVE); BENZODIAZEPINES SCREEN,URINE NEGATIVE (NEGATIVE); PHENCYCLIDINE SCREEN,URINE NEGATIVE (NEGATIVE)
[2019-07-02 14:27] LABS: BASOPHILS % 0.3 % (0.0-1.0); EOSINOPHILS # (AUTO) 0.2 (0.0-0.4); EOSINOPHILS % 3.5 % (0.0-6.0); HEMATOCRIT 34.6 % (34.2-44.1); HEMOGLOBIN 10.5 g/dL (12.0-16.0); LYMPHOCYTES % 35.2 % (18.0-39.1); MEAN CORPUSCULAR HEMOGLOBIN 23.4 pg (28-32); MEAN CORPUSCULAR HGB CONC 30.3 g/dL (31-35); MEAN CORPUSCULAR VOLUME 77.2 fL (81-99); MONOCYTES # (AUTO) 0.6 (0.2-0.8); MONOCYTES % 9.9 % (4.4-11.3); NEUTROPHILS # (AUTO) 2.9 (2.1-6.9); NEUTROPHILS % 50.8 % (38.7-80.0); PLATELET COUNT 272 x10e3/uL (140-360); RED BLOOD COUNT 4.48 x10e6/uL (3.6-5.1); RED CELL DISTRIBUTION WIDTH 14.4 % (11.7-14.4)
[2019-07-02 14:45] LABS: ALANINE AMINOTRANSFERASE 13 IU/L (0-55); ALBUMIN 3.5 g/dL (3.5-5.0); ALKALINE PHOSPHATASE 84 IU/L (40-150); ANION GAP 9.7 mmol/L (8-16); BLOOD UREA NITROGEN 12 mg/dL (7-26); BUN/CREATININE RATIO 16 (6-25); CALCIUM 8.9 mg/dL (8.4-10.2); CARBON DIOXIDE 27 mmol/L (22-29); CHLORIDE 104 mmol/L (98-107); CREATINE KINASE 136 IU/L (29-168); CREATININE, SERUM 0.77 mg/dL (0.57-1.11); EST GLOMERULAR FILTRATION RATE > 60 ML/MIN (60-); GLUCOSE 93 mg/dL (74-118); POTASSIUM 3.7 mmol/L (3.5-5.1); SODIUM 137 mmol/L (136-145)
[2019-07-02 14:56] LABS: EPITHELIAL CELLS,URINE FEW /LPF; KETONES,URINE NEGATIVE (NEGATIVE)
--- NOTE | 2019-07-02 15:54 | Diagnostic Imaging Report ---
X-ray chest AP portable History: Chest pain Comparison: None. Findings: Central airways unremarkable. Heart size normal. Other mediastinal silhouettes unremarkable. No pleural effusion. No pneumothorax. No focal lung disease. Visualized skeletal structures are unremarkable. Upper abdomen unremarkable. Impression: No acute cardiopulmonary disease on this exam. Signed by: Asif Samuel MD on 07/02/2019 3:51 PM
[2019-07-02 16:45] VITALS: BP 129/66
== END 2019-07-02 16:56 | disposition home or self-care (01) ==
LOC: ER 12:52
DX: R07.89 Other chest pain (principal); F14.10 Cocaine abuse, uncomplicated; F11.10 Opioid abuse, uncomplicated
CPT/HCPCS: 36415; 71045; 80053; 80307; 81001; 81025; 82550; 82553; 84484; 85025; 93005; 99284; J7030

== ENCOUNTER 2020-03-15 15:39 | Emergency (ER) | payer SELFPAY ==
[~2020-03-15] VITALS: Ht 152.4 cm; Wt 66.2 kg
[2020-03-15 17:32] VITALS: BP 118/72
== END 2020-03-15 17:33 | disposition home or self-care (01) ==
LOC: ER 16:23
DX: R07.9 Chest pain, unspecified (principal); R06.02 Shortness of breath; F41.9 Anxiety disorder, unspecified; F32.9 Major depressive disorder, single episode, unspecified
CPT/HCPCS: 71045; 93005; 99282

== ENCOUNTER 2020-10-28 23:58 | Emergency (ER) | payer SELFPAY ==
[~2020-10-28] VITALS: Ht 152.4 cm; Wt 66.2 kg
[2020-10-29] MEDS ORDERED: NEXIUM40 MG PO (00:21)
== END 2020-10-29 00:28 | disposition home or self-care (01) ==
LOC: ER 10-29 00:22
DX: K29.70 Gastritis, unspecified, without bleeding (principal); F41.9 Anxiety disorder, unspecified
CPT/HCPCS: 93005; 99282

== ENCOUNTER 2022-01-14 22:54 | Emergency (ER) | payer OTHER ==
[~2022-01-14] VITALS: Ht 152.4 cm; Wt 66.2 kg
[~2022-01-14 22:54] MED LIST: NEXIUM40 MG PO
[2022-01-14 23:38] LABS: AMPHETAMINES SCREEN,URINE NEGATIVE (NEGATIVE); BENZODIAZEPINES SCREEN,URINE NEGATIVE (NEGATIVE); PHENCYCLIDINE SCREEN,URINE NEGATIVE (NEGATIVE)
[2022-01-14 23:39] LABS: CLARITY,URINE CLOUDY (CLEAR); COLOR,URINE YELLOW (YELLOW); KETONES,URINE NEGATIVE (NEGATIVE); LEUKOCYTE ESTERASE ,URINE NEGATIVE (NEGATIVE); NITRITE,URINE NEGATIVE (NEGATIVE); PROTEIN,URINE DIPSTICK NEGATIVE (NEGATIVE); URINE UROBILINOGEN 2 mg/dL (0.2 - 1)
[2022-01-14 23:53] LABS: BACTERIA,URINE MODERATE /HPF; EPITHELIAL CELLS,URINE MODERATE /LPF
[2022-01-14 23:54] LABS: AMORPHOUS SEDIMENT,URINE MODERATE (FEW)
[2022-01-15 01:32] LABS: BASOPHILS # (AUTO) 0.1 (0.0-0.1); BASOPHILS % 0.4 % (0.0-1.0); EOSINOPHILS # (AUTO) 0.4 (0.0-0.4); EOSINOPHILS % 2.7 % (0.0-6.0); HEMATOCRIT 40.1 % (34.2-44.1); HEMOGLOBIN 12.8 g/dL (12.0-16.0); LYMPHOCYTES # (AUTO) 2.7 (1.0-3.2); LYMPHOCYTES % 20.8 % (18.0-39.1); MEAN CORPUSCULAR HEMOGLOBIN 26.8 pg (28-32); MEAN CORPUSCULAR HGB CONC 31.9 g/dL (31-35); MEAN CORPUSCULAR VOLUME 83.9 fL (81-99); MONOCYTES # (AUTO) 1.1 (0.2-0.8); NEUTROPHILS # (AUTO) 8.9 (2.1-6.9); NEUTROPHILS % 67.6 % (38.7-80.0); PLATELET COUNT 318 x10e3/uL (140-360); RED BLOOD COUNT 4.78 x10e6/uL (3.6-5.1); RED CELL DISTRIBUTION WIDTH 12.5 % (11.7-14.4)
[2022-01-15 01:47] LABS: ALBUMIN 4.3 g/dL (3.5-5.0); ALBUMIN/GLOBULIN RATIO 1.2 (0.8-2.0); ANION GAP 11.9 mmol/L (8-16); CALCIUM 9.3 mg/dL (8.4-10.2); CREATININE, SERUM 0.73 mg/dL (0.57-1.11); POTASSIUM 3.9 mmol/L (3.5-5.1)
[2022-01-15] MEDS ORDERED: ONDANSETRON ODT4 MG PO (01:51)
[2022-01-15] MEDS ORDERED: PEPCID20 MG PO (01:51)
[2022-01-15 01:52] VITALS: BP 134/94
== END 2022-01-15 02:03 | disposition home or self-care (01) ==
LOC: ER 23:13
DX: R07.89 Other chest pain (principal); K83.9 Disease of biliary tract, unspecified; R10.13 Epigastric pain; E78.00 Pure hypercholesterolemia, unspecified; R16.0 Hepatomegaly, not elsewhere classified; F41.9 Anxiety disorder, unspecified
CPT/HCPCS: 36415; 74176; 80053; 80307; 81001; 81025; 83690; 85025; 93005; 99284

== ENCOUNTER → 2023-07-10 | Emergency (ER) | payer OTHER ==
[~2023-07-10] MED LIST changes: +ONDANSETRON ODT4 MG PO; +PEPCID20 MG PO
== END | disposition left against medical advice (07) ==
LOC: ER 12:11
DX: R06.02 Shortness of breath (principal)

== ENCOUNTER 2023-10-20 16:52 | Inpatient (IN) | payer OTHER ==
[~2023-10-20] VITALS: Ht 149.9 cm; Wt 75.8 kg
[2023-10-20] MEDS ORDERED: Morphine 2mg Syringe 2 MG/ML SYR IV STA (17:28)
[2023-10-20 17:49] LABS: BASOPHILS % 0.6 % (0.0-1.0); EOSINOPHILS # (AUTO) 0.3 (0.0-0.4); HEMATOCRIT 39.4 % (34.2-44.1); HEMOGLOBIN 13.1 g/dL (12.0-16.0); LYMPHOCYTES # (AUTO) 2.1 (1.0-3.2); LYMPHOCYTES % 30.9 % (18.0-39.1); MEAN CORPUSCULAR HEMOGLOBIN 27.4 pg (28-32); MEAN CORPUSCULAR HGB CONC 33.2 g/dL (31-35); MEAN CORPUSCULAR VOLUME 82.4 fL (81-99); MONOCYTES # (AUTO) 0.6 (0.2-0.8); MONOCYTES % 8.9 % (4.4-11.3); NEUTROPHILS # (AUTO) 3.7 (2.1-6.9); NEUTROPHILS % 54.1 % (38.7-80.0); PLATELET COUNT 261 x10e3/uL (140-360); RED BLOOD COUNT 4.78 x10e6/uL (3.6-5.1); RED CELL DISTRIBUTION WIDTH 13.1 % (11.7-14.4); WHITE BLOOD COUNT 6.82 x10e3/uL (4.8-10.8)
[2023-10-20] MEDS: SODIUM CHLORIDE 0.9% 1000ML 1,000 ML IV STA (17:54)
[2023-10-20] MEDS: DICYCLOMINE HCL 20 MG/2 ML VIAL IM ONE (17:54)
[2023-10-20] MEDS: ONDANSETRON HCL INJ 2MG/ML 2ML 2 MG/ML VIAL IV STA (17:54)
[2023-10-20 17:58] LABS: INR 0.86; PROTHROMBIN TIME 12.2 seconds (11.9-14.5)
[2023-10-20 17:59] LABS: PARTIAL THROMBOPLASTIN TIME 24.8 seconds (23.8-35.5)
[2023-10-20 18:12] LABS: ALANINE AMINOTRANSFERASE 545 IU/L (0-55); ALBUMIN 4.1 g/dL (3.5-5.0); ALBUMIN/GLOBULIN RATIO 1.2 (0.8-2.0); ALKALINE PHOSPHATASE 113 IU/L (40-150); ANION GAP 12.6 mmol/L (8-16); BLOOD UREA NITROGEN 6 mg/dL (7-26); BUN/CREATININE RATIO 9 (6-25); CALCIUM 9.2 mg/dL (8.4-10.2); CARBON DIOXIDE 24 mmol/L (22-29); CHLORIDE 100 mmol/L (98-107); CREATININE, SERUM 0.69 mg/dL (0.57-1.11); EST GLOMERULAR FILTRATION RATE 118 ML/MIN (>=60); GLUCOSE 140 mg/dL (74-118); LIPASE 45 U/L (8-78); POTASSIUM 3.6 mmol/L (3.5-5.1); SODIUM 133 mmol/L (136-145); TOTAL PROTEIN 7.5 g/dL (6.5-8.1)
[2023-10-20] MEDS ORDERED: Morphine 4mg INJECTION 4 MG/ML INJ IV PRN (19:30)
[2023-10-20] MEDS ORDERED: ONDANSETRON HCL INJ 2MG/ML 2ML 2 MG/ML VIAL IV PRN (19:30)
[2023-10-20] MEDS: SODIUM CHLORIDE 0.9% 1000ML 1,000 ML IV SCH (20:15)
[2023-10-20] MEDS ORDERED: HYDRALAZINE HCL 20 MG/ML VIAL IV PRN (21:15)
[2023-10-20 23:09] VITALS: PULSE 65; RESP 17; TEMP 98.1
[2023-10-21] VITALS (7 sets, daily range): BP systolic 127–138; BP diastolic 78–86; PULSE 67–86; RESP 15–20; TEMP 98–98.6; O2SAT 99–100
[2023-10-21 06:42] LABS: BASOPHILS % 0.6 % (0.0-1.0); EOSINOPHILS # (AUTO) 0.3 (0.0-0.4); EOSINOPHILS % 4.6 % (0.0-6.0); HEMATOCRIT 39.5 % (34.2-44.1); HEMOGLOBIN 12.7 g/dL (12.0-16.0); LYMPHOCYTES # (AUTO) 2.4 (1.0-3.2); LYMPHOCYTES % 37.7 % (18.0-39.1); MEAN CORPUSCULAR HEMOGLOBIN 27.1 pg (28-32); MEAN CORPUSCULAR HGB CONC 32.2 g/dL (31-35); MEAN CORPUSCULAR VOLUME 84.4 fL (81-99); MONOCYTES # (AUTO) 0.6 (0.2-0.8); MONOCYTES % 8.8 % (4.4-11.3); NEUTROPHILS % 47.2 % (38.7-80.0); PLATELET COUNT 234 x10e3/uL (140-360); RED BLOOD COUNT 4.68 x10e6/uL (3.6-5.1); RED CELL DISTRIBUTION WIDTH 13.1 % (11.7-14.4); WHITE BLOOD COUNT 6.28 x10e3/uL (4.8-10.8)
[2023-10-21 07:16] LABS: ALBUMIN 3.3 g/dL (3.5-5.0); ALBUMIN/GLOBULIN RATIO 1.1 (0.8-2.0); ANION GAP 7.8 mmol/L (8-16); BILIRUBIN,TOTAL 1.3 mg/dL (0.2-1.2); CALCIUM 8.5 mg/dL (8.4-10.2); CREATININE, SERUM 0.71 mg/dL (0.57-1.11); POTASSIUM 3.8 mmol/L (3.5-5.1); TOTAL PROTEIN 6.2 g/dL (6.5-8.1)
[2023-10-21] MEDS ORDERED: LORAZEPAM INJ 2 MG/ML VIAL IV PRN (12:45)
[2023-10-22] VITALS (8 sets, daily range): BP systolic 110–148; BP diastolic 68–94; PULSE 58–74; RESP 18–19; TEMP 97.8–99.3; O2SAT 98–100
[2023-10-22 10:48] LABS: BENZODIAZEPINES SCREEN,URINE NEGATIVE (NEGATIVE); CANNABINOIDS SCREEN,URINE NEGATIVE (NEGATIVE); METHADONE SCREEN, URINE NEGATIVE (NEGATIVE); OPIATES SCREEN,URINE NEGATIVE (NEGATIVE)
[2023-10-22 10:49] LABS: AMPHETAMINES SCREEN,URINE NEGATIVE (NEGATIVE); PHENCYCLIDINE SCREEN,URINE NEGATIVE (NEGATIVE)
[2023-10-22] MEDS ORDERED: MIDAZOLAM HCL 5 MG/ML VIAL ONE (12:00)
[2023-10-22] MEDS ORDERED: FENTANYL CITRATE/PF 100MCG/2 ML INJ ONE (12:00)
[2023-10-22] MEDS ORDERED: PROPOFOL IV EMULSION 10 MG/ML 20 ML VIAL ONE (12:36)
[2023-10-22] MEDS ORDERED: DEXMEDETOMIDINE HCL 200 MCG/2 ML VIAL ONE (12:36)
[2023-10-22] MEDS ORDERED: ACETAMINOPHEN 1000 MG/100 ML IV ONE (12:36)
[2023-10-22] MEDS ORDERED: LIDOCAINE HCL 2% LOCAL INJ 5 ML SDV VIAL INJ ONE (12:36)
[2023-10-22] MEDS ORDERED: DEXAMETHASONE SOD PHOS INJ 4 MG/ML SDV ONE (12:36)
[2023-10-22] MEDS ORDERED: SUGAMMADEX SODIUM 200 MG/2 ML VIAL IV ONE (12:36)
[2023-10-22] MEDS ORDERED: ROCURONIUM BROMIDE 10 MG/ML 5ML VIAL IV ONE (12:36)
[2023-10-22] MEDS ORDERED: ONDANSETRON HCL INJ 2MG/ML 2ML 2 MG/ML VIAL ONE (12:36)
[2023-10-22] MEDS ORDERED: SEVOFLURANE INHAL SOLN 250 ML PEN BTL ONE (12:36)
[2023-10-22] MEDS ORDERED: BUPIVACAINE 0.25% 30ML SDV ONE (14:39)
[2023-10-22] MEDS ORDERED: KETOROLAC TROMETHAMINE 30 MG/ML VIAL IV PRN (16:15)
[2023-10-22] MEDS: HYDROCODONE/APAP 7.5MG-325MG 1 EA TAB PO PRN (19:49)
[2023-10-23] MEDS ORDERED: ONDANSETRON ODT4 MG PO (00:15)
[2023-10-23] MEDS ORDERED: ACETAMINOPHEN 325 MG TAB PO PRN (00:15)
[2023-10-23] MEDS ORDERED: AMOX TR-K CLV1 EAC2 PO (00:15)
[2023-10-23 04:01] VITALS: BP 139/92; PULSE 65; RESP 18; TEMP 98.3; O2SAT 100
[2023-10-23 05:19] LABS: BASOPHILS % 0.1 % (0.0-1.0); HEMATOCRIT 37.3 % (34.2-44.1); HEMOGLOBIN 12.5 g/dL (12.0-16.0); LYMPHOCYTES # (AUTO) 1.7 (1.0-3.2); LYMPHOCYTES % 13.5 % (18.0-39.1); MEAN CORPUSCULAR HEMOGLOBIN 27.6 pg (28-32); MEAN CORPUSCULAR HGB CONC 33.5 g/dL (31-35); MEAN CORPUSCULAR VOLUME 82.3 fL (81-99); MONOCYTES # (AUTO) 0.8 (0.2-0.8); MONOCYTES % 6.3 % (4.4-11.3); NEUTROPHILS % 79.4 % (38.7-80.0); PLATELET COUNT 242 x10e3/uL (140-360); RED BLOOD COUNT 4.53 x10e6/uL (3.6-5.1); RED CELL DISTRIBUTION WIDTH 12.8 % (11.7-14.4); WHITE BLOOD COUNT 12.63 x10e3/uL (4.8-10.8)
[2023-10-23 05:49] LABS: ALBUMIN 3.5 g/dL (3.5-5.0); ALBUMIN/GLOBULIN RATIO 1.1 (0.8-2.0); ANION GAP 13.5 mmol/L (8-16); BILIRUBIN,TOTAL 0.8 mg/dL (0.2-1.2); CALCIUM 8.5 mg/dL (8.4-10.2); CREATININE, SERUM 0.67 mg/dL (0.57-1.11); POTASSIUM 3.5 mmol/L (3.5-5.1); TOTAL PROTEIN 6.6 g/dL (6.5-8.1)
[2023-10-23 07:24] VITALS: BP 125/82; PULSE 70; RESP 19; TEMP 97.9; O2SAT 100
[2023-10-23 09:38] VITALS: BP 125/82; PULSE 70; RESP 19; TEMP 97.9; O2SAT 100
[2023-10-23] MEDS: HYDROMORPHONE 1MG/1ML INJ IV PRN (09:59)
[2023-10-23 10:56] VITALS: BP 114/80; PULSE 70; RESP 16; TEMP 97.9; O2SAT 100
[2023-10-23] MEDS ORDERED: ULTRAM 50MG50 MG PO (11:40)
[2023-10-23 15:21] VITALS: BP 128/74; PULSE 68; RESP 18; TEMP 98.3; O2SAT 100
== END 2023-10-23 15:55 | disposition home or self-care (01) | DRG 419 ==
LOC: ER 17:18 → ERHOLD 19:29 → ICU 23:53 → MED/SURG2 10-21 22:22
PROVIDERS: ADMIT Internal Medicine; ATTEND Internal Medicine
PROC: 0FT44ZZ Resection of Gallbladder, Percutaneous Endoscopic Approach (ICD-10-PCS; principal; 2023-10-22 14:42)
DX: K80.12 Calculus of gallbladder with acute and chronic cholecystitis without obstruction (principal); K21.9 Gastro-esophageal reflux disease without esophagitis; F41.9 Anxiety disorder, unspecified; F32.A Depression, unspecified; E66.9 Obesity, unspecified; Z68.33 Body mass index [BMI] 33.0-33.9, adult
CPT/HCPCS: 36415; 71045; 74181; 76705; 80053; 80307; 83690; 84702; 85025; 85610; 85730; 88304; 88342; 99252; 99284; C1766; J1100; J1170; J2001; J2250; J2405; J2470; J2543; J7030

== ENCOUNTER 2024-02-05 22:28 | Emergency (ER) | payer OTHER ==
[~2024-02-05] VITALS: Ht 149.9 cm; Wt 75.7 kg
[~2024-02-05 22:28] MED LIST changes: +AMOX TR-K CLV1 EAC2 PO; +ULTRAM 50MG50 MG PO
[2024-02-05 22:30] VITALS: PULSE 65; RESP 15; TEMP 98.4
[2024-02-05 22:52] LABS: BASOPHILS # (AUTO) 0.1 (0.0-0.1); BASOPHILS % 0.4 % (0.0-1.0); EOSINOPHILS # (AUTO) 0.3 (0.0-0.4); EOSINOPHILS % 2.9 % (0.0-6.0); HEMATOCRIT 37.6 % (34.2-44.1); HEMOGLOBIN 12.7 g/dL (12.0-16.0); LYMPHOCYTES # (AUTO) 4.8 (1.0-3.2); LYMPHOCYTES % 41.1 % (18.0-39.1); MEAN CORPUSCULAR HEMOGLOBIN 27.1 pg (28-32); MEAN CORPUSCULAR HGB CONC 33.8 g/dL (31-35); MEAN CORPUSCULAR VOLUME 80.3 fL (81-99); MONOCYTES # (AUTO) 0.9 (0.2-0.8); MONOCYTES % 7.3 % (4.4-11.3); NEUTROPHILS # (AUTO) 5.4 (2.1-6.9); NEUTROPHILS % 46.9 % (38.7-80.0); PLATELET COUNT 276 x10e3/uL (140-360); RED BLOOD COUNT 4.68 x10e6/uL (3.6-5.1); RED CELL DISTRIBUTION WIDTH 12.7 % (11.7-14.4); WHITE BLOOD COUNT 11.62 x10e3/uL (4.8-10.8)
[2024-02-05 23:25] LABS: ALBUMIN/GLOBULIN RATIO 1.1 (0.8-2.0); ANION GAP 14.7 mmol/L (8-16); BILIRUBIN,TOTAL 0.4 mg/dL (0.2-1.2); CALCIUM 9.1 mg/dL (8.4-10.2); CREATININE, SERUM 0.7 mg/dL (0.57-1.11); POTASSIUM 3.7 mmol/L (3.5-5.1); TOTAL PROTEIN 7.5 g/dL (6.5-8.1)
[2024-02-05 23:31] LABS: TROPONIN I 0.005 ng/mL (0-0.300)
[2024-02-06 00:05] VITALS: BP 138/74; PULSE 71; RESP 16; TEMP 98.6; O2SAT 98
== END 2024-02-05 23:52 | disposition home or self-care (01) ==
LOC: ER 22:32
DX: R00.2 Palpitations (principal); F41.9 Anxiety disorder, unspecified
CPT/HCPCS: 36415; 71045; 80053; 82550; 83690; 83880; 84484; 85025; 93005; 99284